=== PATIENT | male | born 1990 | race Caucasian/White ===

== ENCOUNTER 2021-02-25 13:24 | Outpatient (RCR) | payer BC, SELFPAY ==
--- NOTE | 2021-02-25 14:55 | PTOPEVAL ---
PHYSICAL THERAPY EVALUATION Thank you for referring Claudio Rogers to [facility].? Claudio was seen for PT evaluation this date. It appears that his R proximal, lateral thigh numbness could be due to L5 spinal segmental dysfunction. This was corrected as well as education on proper body and spinal mechanics with home and work activities. There was a reduction of the numbness following the manual therapy. I will follow up next week with Claudio to see how he is doing. If further PT is needed, will formulate a plan of care and forward it to you. I agree with the above. Referring Physician Date Admitting Provider: Attending Provider: Lane Phipps, Referring Provider: *PT Outpatient Evaluation Start: 02/25/21 13:46 Freq: Status: Active Protocol: Document 02/25/21 13:46 KAY (Rec: 02/25/21 14:53 KAY [email or web address]) Therapy Assessment Status Assessment Status Assessment Status Evaluation Outpatient Past Medical History Past Medical History No Past Medical/Surgical History Patient/Family Denies Significant Past Medical/ Surgical History Evaluation Information Problem Diagnosis R leg pain Onset ~ 1 month Subjective Information Claudio has noticed within last Query Text:As Reported By Patient/ month or so - when sitting for Family long drives will feel a numbness and burning sensation with lateral aspect of R thigh. He begins to notice more - mid morning - it will continue for rest of day. Then next morning wakes up without the numbness. 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 Takes phone out of his pocket when sitting in truck - but otherwise phone and keys are in that pocket. No pain - just burning, numbness - not unbearable - but wants to figure out what is going on and avoid worsening of problem . Prior Level of Function Activity Level (Last 3 Months) Occupation field crops harvest machine operator Hand [employer] Medications Home Meds (Include: OTC, RX, Vitamins, none Herbals, Dose, Route,and Frequency) Query Text:Home Med Entries Will No Longer Recall From Past Visits. Home Meds Must Be Re-entered With Each Visit. Pain Assessment Timing of Pain Assessment Timing of Pain Assessment Assessment Self Report Self Report Pain Level 0 Pain Score
--- NOTE | 2021-03-04 11:35 | PCPTNOTE ---
Follow up phone call made to Claudio. Burning sensation in lateral thigh is gone, numbness is decreasing but still there at times. Reminded him about body mechanics with work activities. No further follow up planned. D/C after eval.
== END 2021-03-27 13:46 | disposition home or self-care (01) ==
LOC: ANHHIPT 13:24
PROVIDERS: PCP Internal Medicine; Visit Provider Internal Medicine
DX: M79.604 Pain in right leg (principal)
CPT/HCPCS: 97161

== ENCOUNTER 2022-02-18 13:00 | Outpatient (NON) | payer BC, SELFPAY | END 2022-02-18 13:01 | disposition home or self-care (01) | LOC: ANHLAB 02-19 12:13 | PROVIDERS: PCP Internal Medicine; Visit Provider Nurse Practitioner | DX: D49.2 Neoplasm of unspecified behavior of bone, soft tissue, and skin (principal) | CPT/HCPCS: 88305 ==